=== PATIENT | female | born 1985 | race Caucasian/White ===

== ENCOUNTER 2019-09-22 11:53 | Emergency (ER) | payer MEDICAID, SELFPAY ==
[2019-09-22 11:57] VITALS: BP 111/81; PULSE 73; RESP 16; TEMP 36.4; O2SAT 98
--- NOTE | 2019-09-22 14:01 | ED.GENADULT ---
HPI - General Adult General Chief complaint: Eye Problems Stated complaint: left eye swelling Time Seen by Provider: 09/22/19 12:59 Source: patient Mode of arrival: ambulatory Limitations: no limitations History of Present Illness HPI narrative: 33-year-old female patient presents to the emergency department with complaints of left eye swelling. Patient states is been this way for the past 2 to 3 days. Denies wearing any type of eye make-up recently. Denies any trauma to the eye that she is aware of. Patient states that she has been having some watering to the eye and has been using some cool compresses. Patient states it is tender to the touch. Denies wearing any contacts. Related Data Allergies Allergy/AdvReac Type Severity Reaction Status Date / Time aspirin Allergy Mild Anaphylaxis Verified 09/22/19 11:59 Penicillins Allergy Mild Anaphylaxis Verified 09/22/19 11:59 Review of Systems Review of Systems: Narrative: CONSTITUTIONAL: Denies fever, chills, or sweats. EYES: Denies visual changes, redness, or discharge. Positive swelling and redness to the left upper eyelid ENT: Denies rhinorrhea, congestion, sore throat, or otalgia. CARDIOVASCULAR: Denies chest pain, palpitations, or edema. RESPIRATORY: Denies cough or dyspnea. GASTROINTESTINAL: Denies abdominal pain, nausea, vomiting, or diarrhea. GENITOURINARY: Denies dysuria or hematuria. SKIN: Denies rash or itching. MUSCULOSKELETAL: Denies back pain, joint pain, or myalgia. NEUROLOGIC: Denies headache, numbness, or weakness. PSYCHIATRIC: Denies anxiety or depression. PMFSH Social History Social History Gender identity (if verbalized by the patient): Female Comments At the time of my signature I agree with nursing past medical history, surgical, social, and family history. There is no relevant family history pertinent to the presenting complaint. Exam Narrative: Exam Narrative: GENERAL: Well-appearing, well-nourished, and in no acute distress. HEAD: Normocephalic, atraumatic. EYES: PERRLA and EOM intact without limitation or complaint of pain, no periorbital soft tissue swelling. Patient has slight swelling with erythema and slight warmth noted to the left upper eyelid on the lateral side. no obvious deformity. No crusting or swelling.no tearing or draining.No photophobia. There is an internal stye noted to the lateral side on lid eversion. Corneas grossly clear, no obvious FB or hyphens/hypopyon. No injection to sclera. Lids and lashes clear. ENT: Nares clear, no rhinorrhea or epistaxis. Mucous membranes moist. NECK: Supple. No lymphadenopathy CHEST: Clear to auscultation. No respiratory distress. HEART: Regular rate and rhythm. No murmur heard. Normal peripheral pulses. ABDOMEN: Soft, nontender, nondistended, normal active bowel sounds. EXTREMITIES: Normal range of motion. No edema. SKIN: Warm, dry, no rash. NEURO: No focal deficits. Alert and oriented x3. Course Vital Signs Vital signs: Vital Signs Temperature 36.4 C L 09/22/19 11:57 Pulse Rate 73 09/22/19 11:57 Respiratory Rate 16 09/22/19 11:57 Blood Pressure 111/81 09/22/19 11:57 Pulse Oximetry 98 09/22/19 11:57 Temperature 36.4 C L 09/22/19 11:57 Pulse Rate 73 09/22/19 11:57 Respiratory Rate 16 09/22/19 11:57 Blood Pressure 111/81 09/22/19 11:57 Pulse Oximetry 98 09/22/19 11:57 Vital signs reviewed. Medical Decision Making Differential Diagnosis Differential Diagnosis: Differential diagnosis: Conjunctivitis, foreign body, corneal ulcer, Keratitis, dendritic lesions, corneal abrasion, very orbital infection, orbital cellulitis, orbital pain, acute narrow angle glaucoma, detached retina, central retinal artery occlusion, complete hyphema, vitreous hemorrhage, optic neuritis, globe disruption Cussed with patient it does appear that she has a stye to the left eye. Discussed with her we will discharge her home with some a
== END 2019-09-22 14:19 | disposition home or self-care (01) ==
PROVIDERS: Emergency Provider Nurse Practitioner Family
DX: H00.024 Hordeolum internum left upper eyelid (principal)
CPT/HCPCS: 99283

== ENCOUNTER 2020-04-07 16:59 | Emergency (ER) | payer OTHER, SELFPAY ==
--- NOTE | ~2020-04-07 | XR_ITS ---
EXAMINATION: XR chest 1V portable INDICATION: Shortness of breath, COVID 19 exposure and associated symptoms TECHNIQUE: Portable AP chest at 1759 hours COMPARISON: None available FINDINGS: The lungs are free of acute opacities. There is no pleural effusion or pneumothorax. The ca rdiomediastinal silhouette is normal. The visualized bones and soft tissues are unremarkable. IMPRESSION: 1. No acute cardiopulmonary abnormality. Reviewed, dictated and finalized at location A. PUNCH PRESS OPERATOR
[2020-04-07 17:05] VITALS: BP 110/74; PULSE 77; RESP 18; TEMP 37.1; O2SAT 99
--- NOTE | 2020-04-07 17:21 | ED.GENADULT ---
HPI - General Adult General Chief complaint: Unspecified Stated complaint: wants covid test, loss of taste and smell Time Seen by Provider: 04/07/20 17:12 Source: patient Mode of arrival: ambulatory Limitations: no limitations History of Present Illness HPI narrative: Patient is a 34-year-old female who presents complaining body aches, weakness, and mild shortness of breath x 2 days. Patient reports awaking this morning with anosmia. Patient reports that she has had recent exposure to Covid with employee testing positive. She denies chest pain, denies significant medical hisotry. She denies taking otc medications for symptom relief. Related Data Allergies Allergy/AdvReac Type Severity Reaction Status Date / Time aspirin Allergy Mild Anaphylaxis Verified 04/07/20 17:35 Penicillins Allergy Mild Anaphylaxis Verified 04/07/20 17:35 Review of Systems Review of Systems: Narrative: CONSTITUTIONAL: Denies fever, chills, or sweats. EYES: Denies visual changes, redness, or discharge. ENT: Denies rhinorrhea, congestion, sore throat, or otalgia. CARDIOVASCULAR: Denies chest pain, palpitations, or edema. RESPIRATORY: Reports mild intermittent dyspnea. GASTROINTESTINAL: Denies abdominal pain, nausea, vomiting, or diarrhea. GENITOURINARY: Denies dysuria or hematuria. SKIN: Denies rash or itching. MUSCULOSKELETAL: Reports generalized myalgia. NEUROLOGIC: Denies headache, numbness, dizziness, or weakness. PSYCHIATRIC: Denies anxiety or depression. FOR[facility]LY [facility] Past Medical History Medical History (Updated 04/07/20 @ 18:43 by BRIAN Orellana) Patient denies significant medical history Family History Family History (Updated 04/07/20 @ 17:28 by BRIAN Orellana) Other No significant family history Social History Social History Smoking status: Current every day smoker Tobacco type: cigarettes Alcohol intake: current Alcohol use details: Occasional Substance use: never Living arrangements: with family Gender identity (if verbalized by the patient): Female Sexual Orientation (if Verbalized by the Patient): Straight or Heterosexual Comments At the time of signature, I have reviewed and agree with nursing past medical, surgical, social, and family history unless otherwise noted. Please see nursing chart for further information. There is no relevant family history pertinent to the presenting complaint. Exam Narrative: Exam Narrative: GENERAL: Well-appearing, well-nourished, and in no acute distress. HEAD: Normocephalic, atraumatic. EYES: EOMI. No redness or drainage. . ENT: Mucous membranes pink and moist. Nares clear. Throat normal. Uvula midline. NECK: AROM. Supple. No lymphadenopathy. CHEST: No respiratory distress. HEART: Regular rate and rhythm. MUSCULOSKELETAL: No bony tenderness. EXTREMITIES: Normal range of motion. SKIN: Warm, dry, no rash. NEURO: No focal deficits. Alert and oriented x3. Gait steady. PSYCH: Normal affect. No signs of depression or anxiety. Course Vital Signs Vital signs: Vital Signs Temperature 37.1 C 04/07/20 17:05 Pulse Rate 77 04/07/20 17:05 Respiratory Rate 18 04/07/20 17:05 Blood Pressure 110/74 04/07/20 17:05 Pulse Oximetry 99 04/07/20 17:05 Temperature 37.1 C 04/07/20 17:05 Pulse Rate 77 04/07/20 17:05 Respiratory Rate 18 04/07/20 17:05 Blood Pressure 110/74 04/07/20 17:05 Pulse Oximetry 99 04/07/20 17:05 Medical Decision Making MDM Narrative Medical decision making narrative: Patient's chest x-ray showed no pneumonia. Patient's vital signs are stable at this time. Patient tested for Covid, results will be available in 24 to 48 hours. Patient is aware of quarantine. Patient is stable for discharge home with outpatient follow-up as needed. Patient is aware that if she develops chest pain or shortness of breath, that she is to return to the emergency department for
[2020-04-07 19:01] VITALS: BP 103/68; PULSE 75; RESP 18; TEMP 36.8; O2SAT 100
[2020-04-08 17:28] LABS: SARS-CoV-2 RNA PCR Negative
== END 2020-04-07 19:02 | disposition home or self-care (01) ==
PROVIDERS: Emergency Provider Nurse Practitioner; Family Provider Obstetrics & Gynecology
DX: B34.9 Viral infection, unspecified (principal); Z20.822 Contact with and (suspected) exposure to COVID-19; F17.210 Nicotine dependence, cigarettes, uncomplicated
CPT/HCPCS: 71045; 99283; C9803; U0003; U0005

== ENCOUNTER 2020-10-16 15:32 | Emergency (ER) | payer OTHER, SELFPAY ==
[2020-10-16 15:44] VITALS: BP 118/69; PULSE 76; RESP 14; TEMP 36.6; O2SAT 99
--- NOTE | 2020-10-16 16:26 | ED.FEMALEGU ---
HPI - Female Genitourinary General Chief complaint: EDUCATION ASSOCIATE Stated complaint: , leaking fluid Time Seen by Provider: 10/16/20 15:39 History of Present Illness HPI Narrative: Patient is a 35-year-old female who is a G4, P2 that presents ER with concerns for amniotic fluid leak. She was seen at [place] emergency room but they did not have the ability to test for amniotic fluid. She had a normal ultrasound normal lab work prior to being transferred here. Dr. Bhatt patient's OB is unable to be contacted due to being out of town. Patient reports yesterday she was lifting something out of a jeep and had it resting against her abdomen and caused to have some pain. She has had 5 episodes of clear fluid in her underwear. She does not think that she is urinating on herself. Denies vaginal bleeding. Related Data Allergies Allergy/AdvReac Type Severity Reaction Status Date / Time aspirin Allergy Mild Anaphylaxis Verified 04/07/20 17:35 Penicillins Allergy Mild Anaphylaxis Verified 04/07/20 17:35 Review of Systems Review of Systems: All systems reviewed & are unremarkable except as noted in HPI and below Gastrointestinal: Gastrointestinal: Reports abdominal pain, Denies nausea and Denies vomiting Genitourinary: Genitourinary: Denies abnormal vaginal bleeding, Denies nocturia and Denies dysuria Comments: Leakage of fluid from vagina PMFSH Past Medical History Medical History (Updated 10/16/20 @ 16:55 by Abdon Aguirre MD) Patient denies significant medical history Family History Family History (Updated 04/07/20 @ 17:28 by BRIAN Orellana) Other No significant family history Social History Social History Smoking status: Current every day smoker Tobacco type: cigarettes Alcohol intake: current Alcohol use details: Occasional Substance use: never Gender identity (if verbalized by the patient): Female Exam Narrative: GENERAL: Well-appearing, well-nourished, and in no acute distress. HEAD: Normocephalic, atraumatic. CHEST: Clear to auscultation. No respiratory distress. HEART: Regular rate and rhythm. Normal peripheral pulses. ABDOMEN: Soft, nontender, nondistended. EXTREMITIES: Normal range of motion. No edema. SKIN: Warm, dry, no rash. NEURO: Alert and oriented x3. PSYCH: Normal mood and affect. Course Course Emergency Course: Outside labs reviewed. CBC with white blood cell count of 10.2, H&H of 12.9/37.5, and platelets of 216k. BMP normal. Creatinine 0.49. Glucose 108. Unremarkable LFTs. Urinalysis with turbid appearing urine with 9-20 white blood cells and occasional bacteria. Ultrasound results show a single live intrauterine gestation in vertex presentation. Placenta is fundal and posterior. No evidence of hematoma or other posttraumatic abnormality. The amniotic fluid index is within normal range, 14.4. cardiac activity is documented with a rate of 145 bpm. The estimated uterine gestational age by this ultrasound is 18 weeks 4 days. OB has been down to the patient's room. There is no evidence of amniotic fluid leak. I discussed the case with on-call consulting manager Dr. Molina who is on-call for Dr. Bhatt's group. There is no additional testing that needs to occur. Patient was given 1 dose of Macrobid in no prescription. Will provide prescription for home. Vital Signs Vital signs: Vital Signs Temperature 97.8 F 10/16/20 15:44 Pulse Rate 76 10/16/20 15:44 Respiratory Rate 14 10/16/20 15:44 Blood Pressure 118/69 10/16/20 15:44 Pulse Oximetry 99 10/16/20 15:44 Temperature 97.8 F 10/16/20 15:44 Pulse Rate 76 10/16/20 15:44 Respiratory Rate 14 10/16/20 15:44 Blood Pressure 118/69 10/16/20 15:44 Pulse Oximetry 99 10/16/20 15:44 Discharge Plan Discharge Clinical Impression: UTI (urinary tract infection) Patient Disposition: Home, Self-Care Condition: Stable Instruc
--- NOTE | 2020-10-16 16:27 | PC.NURSE ---
ROM plus was collected and results were Negative. Results called to Dr Whitney.
[2020-10-16 17:03] VITALS: BP 112/88; PULSE 94; RESP 17; O2SAT 99
== END 2020-10-16 17:04 | disposition home or self-care (01) ==
PROVIDERS: Emergency Provider Emergency Medicine; PCP Student in an Organized Health Care Education/Training Program
DX: O23.42 Unspecified infection of urinary tract in pregnancy, second trimester (principal); O99.332 Smoking (tobacco) complicating pregnancy, second trimester; F17.210 Nicotine dependence, cigarettes, uncomplicated; Z3A.18 18 weeks gestation of pregnancy
CPT/HCPCS: 99283

== ENCOUNTER 2021-01-27 11:37 | Observation (INO) | payer OTHER, SELFPAY ==
[2021-01-27 11:57] VITALS: BP 113/64; PULSE 92
[2021-01-27 12:30] VITALS: BMI 27.1
[2021-01-27 12:51] VITALS: TEMP 36.8
[2021-01-27 12:52] LABS: Add Urine Microscopic? YES; Appearance Urine Cloudy (Clear); Bacteria Urine Trace /hpf; Bilirubin Urine Negative (Negative); Blood Urine Negative (Negative); Color Urine Yellow (Yellow); Glucose Urine UA Negative (Negative); Ketones Urine Trace mg/dL (Negative); Leukocyte Esterase Ur Negative LEU/UL (Negative); Mucus Urine Rare /lpf; Nitrate Urine Negative (Negative); Protein Urine Negative (Negative); RBC Urine 0-2 /hpf (0-2); Specific Grav Ur 1.016 (1.001-1.035); Squamous Epithelial Cell Urine Few /hpf (Few); Urobilinogen Urine Negative mg/dL (<2.0); WBC Urine 0-3 /hpf
--- NOTE | 2021-01-27 13:44 | PC.NURSE ---
1245- called after reviewing strip from office, gave orders to discharge pt home. Encourage pt to take a warm bath and tylenol for back pain.
--- NOTE | 2021-01-28 13:10 | PM.OBTRLD ---
OB - Triage/Final Diagnosis Visit Information Date of evaluation: 01/27/21 Reason for evaluation: threatened labor Comments/Additional reasons for admission: I have assessed the risk for this patient, Catherine Gorman, and determined that she would benefit from observation care. Evaluation Laboratory results: Laboratory Tests 01/27/21 12:35 Urine Color Yellow Urine Appearance Cloudy H Urine pH 7.0 Ur Specific [place] 1.016 Urine Protein Negative Urine Glucose (UA) Negative Urine Ketones Trace Ur Blood (Man) Negative Urine Nitrate Negative Urine Bilirubin Negative Urine Urobilinogen Negative Leukocyte Esterase Rfl Negative Urine RBC 0-2 Urine WBC 0-3 Ur Squamous Epith Cells Few Urine Bacteria Trace Urine Mucus Rare
== END 2021-01-27 12:56 | disposition home or self-care (01) ==
PROVIDERS: Admitting Provider Student in an Organized Health Care Education/Training Program; Visit Provider Student in an Organized Health Care Education/Training Program
DX: O47.03 False labor before 37 completed weeks of gestation, third trimester (principal); Z3A.33 33 weeks gestation of pregnancy
CPT/HCPCS: 81001; G0378; G0379

== ENCOUNTER 2021-02-03 07:21 | Outpatient (CLI) | payer OTHER, SELFPAY ==
--- NOTE | ~2021-02-03 | US_ITS ---
EXAMINATION: US OB follow up EXAM DATE: 02/03/2021 07:58 INDICATION: Growth scan; , growth. 3rd trimester. TECHNIQUE: Pelvic obstetrical transabdominal sonogram was performed by a technologist. There are mu ltiple grayscale and Doppler images available for interpretation. There are no earlier studies of th is gestation for comparison. FINDINGS: There is a single fetus identified in vertex presentation with a heart rate of 119 beats pe r minute. The placenta is located in the posterior position. There is no sonographic evidence of ret roplacental hemorrhage identified. The amniotic fluid index is 11.9 centimeters, which is normal. BIOMETRIC DATA: Biparietal diameter (BPD): 9.0 cm ----------------> 36 weeks 2 days. Head circumference (HC): 30.6 cm ----------------> 34 weeks 1 day. Abdominal circumference (AC): 31.0 cm ----------> 35 weeks 0 days. Femur length (FL): 6.8 cm --------------------------> 35 weeks 1 day. These measurements are concordant. HC/AC ratio is 0.99 (The 5th -- 95th percentile range is 0.93-1.11. Estimated weight is 2581 g +/- 387 g. This is the 71st percentile when the currently reported clinical gestation age 34 weeks 1 day, clinical estimated date of delivery (CHELO-OPE) 03/16/2021 is us ed. estimated gestational age based on measurements from this exam is 35 weeks 1 day, with an e stimated date of delivery (CHELO-AUA) 03/09. IMPRESSION: 1. Single fetus in vertex presentation with heart rate 119 beats per minute. 2. Estimated weight of 2581 grams, 71st percentile using the currently reported clinical gesta tion age of 34 weeks 1 day, CHELO(OPE) 03/16. 3. Normal YUNIEL 11.9 cm. Reviewed, dictated and finalized at location B. CH SCIENTIST IMPRESSION: 1. Single fetus in vertex presentation with heart rate 119 beats per minute. 2. Estimated weight of 2581 grams, 71st percentile using the currently r eported clinical gestation age of 34 weeks 1 day, CHELO(OPE) 03/16. 3. Normal YUNIEL 11.9 cm.
== END 2021-02-03 07:22 | disposition home or self-care (01) ==
LOC: ANHIMG 07:25
PROVIDERS: PCP Student in an Organized Health Care Education/Training Program; Visit Provider Student in an Organized Health Care Education/Training Program
DX: Z34.93 Encounter for supervision of normal pregnancy, unspecified, third trimester (principal); Z3A.34 34 weeks gestation of pregnancy
CPT/HCPCS: 76816

== ENCOUNTER 2021-02-19 15:46 | Observation (INO) | payer OTHER, SELFPAY ==
[2021-02-19] VITALS (11 sets, daily range): BP systolic 91–108; BP diastolic 50–73; PULSE 102–113; TEMP 37.6–38.1; BMI 27.1
--- NOTE | 2021-02-19 15:46 | OBADM ---
This patient, Catherine Gorman, admitted to the OB room Labor/Delivery/Recovery 106 for observation. Patient/family oriented to hospital policies and general routines including ID bracelet, bed and alarms, visiting hours, pain management, procedures, bathroom and other care routines, personal items, smoking policy, room service/diet, and visiting hours. Patient/Family are encouraged to report perceived risks to care and to ask questions if they do not understand what they are told or what they should do.
--- NOTE | 2021-02-19 18:09 | WPDANESEPP ---
Anes - Eval Pre Procedure Procedure: Labor epidural Date/Time: 02/19/21 18:09 Surgeon: Desean Preop Diagnosis: Abd pain with contractions Pre Op Diagnosis: Abdominal pain/back pain Patient Data Age: 35 Gender: F Height: Weight: Last Vital Signs Temp 99.7 F H 02/19/21 16:04 Pulse 109 H 02/19/21 18:00 BP 101/50 L 02/19/21 18:00 Allergies Allergy/AdvReac Type Severity Reaction Status Date / Time aspirin Allergy Mild Anaphylaxis Verified 04/07/20 17:35 Penicillins Allergy Mild Anaphylaxis Verified 04/07/20 17:35 : gestational age HCG: positive Patient hx anesthesia problems: none Family hx anesthesia problems: none Results Review: All pre-operative results and documents have been reviewed as part of the pre-operative evaluation. PMF Past Medical History Medical History Patient denies significant medical history and not yet delivered Smoker Family History Family History Other No significant family history Social History Social History Smoking status: Current every day smoker Tobacco type: cigarettes Alcohol intake: current Alcohol use details: Occasional Substance use: never Gender identity (if verbalized by the patient): Female Sexual Orientation (if Verbalized by the Patient): Straight or Heterosexual Exam Day of Procedure 02/19/21 18:09
[2021-02-19] MEDS: ACETAMINOPHEN 500 MG TABLET 1000 MG PO (18:25)
[2021-02-19 18:49] LABS: EDCOVIDSCREEN Positive (Negative)
--- NOTE | 2021-02-19 19:14 | PC.NURSE ---
[phone]-paged Dr. Remington Monge [phone]- Dr. Remington Monge returned page. lab results reviewed. pt to quarantine for 10 days and await call from health department. increase fluids, tylenol for fever, rest. work note given to pt. per pt she is not vaccinated.
--- NOTE | 2021-02-20 06:40 | PM.OBTRLD ---
OB - Triage/Final Diagnosis Visit Information Date of evaluation: 02/19/21 Reason for evaluation: threatened labor and other (covid) Comments/Additional reasons for admission: I have assessed the risk for this patient, Catherine Gorman, and determined that she would benefit from observation care. Evaluation Laboratory results: Laboratory Tests 02/19/21 18:29 SARS-CoV-2 IgG/IgM Ag?Rapid Positive Vital signs: Vital Signs - 24 hr 02/19/21 16:04 02/19/21 16:44 02/19/21 16:45 Temperature 99.7 F H Pulse Rate 105 H 105 H Blood Pressure 106/67 104/71 02/19/21 17:00 02/19/21 17:15 02/19/21 17:30 Temperature Pulse Rate 102 H 103 H 113 H Blood Pressure 107/73 102/60 91/52 L 02/19/21 17:45 02/19/21 18:00 02/19/21 18:08 Temperature 100.6 F H Pulse Rate 110 H 109 H Blood Pressure 96/51 L 101/50 L 02/19/21 18:15 02/19/21 18:25 Temperature 100.6 F H Pulse Rate 108 H Blood Pressure 108/69
== END 2021-02-19 19:13 | disposition home or self-care (01) ==
PROVIDERS: Admitting Provider Obstetrics & Gynecology; Visit Provider Obstetrics & Gynecology
DX: O98.52 Other viral diseases complicating childbirth (principal); U07.1 COVID-19; O47.03 False labor before 37 completed weeks of gestation, third trimester; Z3A.36 36 weeks gestation of pregnancy; Z37.0 Single live birth
CPT/HCPCS: 36415; 87426; A9270; C9803; G0378; G0379

== ENCOUNTER 2021-03-09 00:01 | Inpatient (IN) | payer OTHER, SELFPAY ==
[2021-03-09] VITALS (53 sets, daily range): BP systolic 79–176; BP diastolic 34–146; PULSE 54–131; RESP 16–22; TEMP 36.4–37.2; O2SAT 99; BMI 26.7
--- NOTE | 2021-03-09 00:01 | LDADM ---
This patient, Catherine Gorman, was admitted to Labor/Delivery/Recovery 104 on 03/09/21 at 00:01. Plans for labor, pain management and were discussed with patient. Patient/family oriented to hospital policies and general routines including ID bracelet, bed and alarms, visiting hours, pain management, procedures, bathroom and other care routines, personal items, smoking policy, room service/diet and guest tray routines, security routines, and visiting hours. Patient/Family are encouraged to report perceived risks to care and to ask questions if they do not understand what they are told or what they should do. See OBIX for further documentation.
[2021-03-09] MEDS: LACTATED RINGERS 1,000 ML 125 ML IV CONT (01:07)
[2021-03-09] MEDS: OXYTOCIN 30 UNITS/NS 500 ML 30 UNITS/500 ML BAG IV CONT (01:07)
[2021-03-09 01:14] LABS: Basophils Percent Auto 0.4 % (0.2-1.2); Eosinophils Absolute Auto 0.1 K/mm3 (0-0.3); Eosinophils Percent Auto 1.2 % (0-4.4); Hemoglobin 10.4 g/dL (12.0-15.0); Immature Granulocyte Absolute 0.17 K/mm3 (0.00-0.031); Immature Granulocyte Percent A 1.9 % (0-0.5); Lymphocytes Absolute Auto 2.37 K/mm3 (0.9-3.2); Lymphocytes Percent Auto 25.8 % (18.3-44.2); Mean Corpuscular HGB Conc 33.5 g/dl (32-36); Mean Corpuscular Hemoglobin 31.8 pg (26-34); Mean Corpuscular Volume 94.8 fl (80-100); Mean Platelet Volume 11.5 fl (7.4-10.4); Monocytes Absolute Auto 0.9 K/mm3 (0.1-0.6); Monocytes Percent Auto 9.5 % (2.6-8.5); Neutrophils Absolute Auto 5.6 K/mm3 (1.3-6.7); Neutrophils Percent Auto 61.2 % (45.5-73.1); Platelet Count Result 196 k/mm3 (150-375); Red Blood Count 3.27 M/mm3 (4.2-5.4); Red Cell Distribution Width 13.6 % (11.5-14.5); White Blood Count 9.2 K/mm3 (4.5-10.0)
[2021-03-09 01:30] LABS: Amphetamine Screen Urine Negative (Negative); Barbiturate Screen Urine Negative (Negative); Benzodiazepines Screen Urine Negative (Negative); Cannabinoid Screen Urine Positive (Negative); Cocaine Screen Urine Negative (Negative); Methadone Screen Urine Negative (Negative); Opiate Screen Urine Negative (Negative); Phencyclidine Screen Urine Negative (Negative)
--- NOTE | 2021-03-09 06:01 | WPDANESEPP ---
Anes - Eval Pre Procedure Procedure: labor pain management Date/Time: 03/09/21 06:01 Surgeon: Miller Preop Diagnosis: pain during labor Pre Op Diagnosis: IOL Patient Data Age: 35 Gender: F Height: 1.66 m Weight: 74 kg Last Vital Signs Pulse 67 03/09/21 06:00 BP 110/76 03/09/21 06:00 Allergies Allergy/AdvReac Type Severity Reaction Status Date / Time aspirin Allergy Severe Anaphylaxis Verified 02/24/21 15:33 Penicillins Allergy Severe Anaphylaxis Verified 02/24/21 15:33 Home Medications Medication Instructions Recorded Confirmed Type PNV no.[id number] 2 tablet PO 02/24/21 History [ Gummies] ergocalciferol (vitamin D2) 1,250 mcg PO WEEKLY 02/24/21 03/09/21 History [Vitamin D2] ondansetron HCl [Zofran] 8 mg PO DAILY 02/24/21 03/09/21 History Laboratory Tests 03/09/21 03/09/21 03/09/21 01:05 01:05 01:05 WBC 9.2 K/mm3 K/mm3 (4.5-10.0) RBC 3.27 M/mm3 L M/mm3 (4.2-5.4) Hgb 10.4 g/dL L g/dL (12.0-15.0) Hct 31.0 % L % (37.0-47.0) MCV 94.8 fl fl (80-100) MCH 31.8 pg pg (26-34) MCHC 33.5 g/dl g/dl (32-36) RDW 13.6 % % (11.5-14.5) Plt Count 196 k/mm3 k/mm3 (150-375) MPV 11.5 fl H fl (7.4-10.4) Immature Gran % (Auto) 1.9 % H % (0-0.5) Neut % (Auto) 61.2 % % (45.5-73.1) Lymph % (Auto) 25.8 % % (18.3-44.2) [place] % (Auto) 9.5 % H % (2.6-8.5) Eos % (Auto) 1.2 % % (0-4.4) Baso % (Auto) 0.4 % % (0.2-1.2) Lymph # (Auto) 2.37 K/mm3 K/mm3 (0.9-3.2) [place] # (Auto) 0.9 K/mm3 H K/mm3 (0.1-0.6) Eos # (Auto) 0.1 K/mm3 K/mm3 (0-0.3) Baso # (Auto) 0.0 K/mm3 K/mm3 (0.0-0.1) Abs Immat Gran (auto) 0.17 K/mm3 H K/mm3 (0.00-0.031) Absolute Neuts (auto) 5.6 K/mm3 K/mm3 (1.3-6.7) Absolute Nucleated RBC 0.0 K/mm3 K/mm3 (0.0-0.012) Nucleated RBC % 0.0 % % (0.0-0.2) Urine Opiates Screen Urine Methadone Screen Ur Barbiturates Screen Ur Phencyclidine Scrn Ur Amphetamine Screen U Benzodiazepines Scrn Urine Cocaine Screen U Cannabinoids Screen RPR Pending Blood Type O Negative Antibody Screen Negative 03/09/21 01:05 WBC RBC Hgb Hct MCV MCH MCHC RDW Plt Count MPV Immature Gran % (Auto) Neut % (Auto) Lymph % (Auto) [place] % (Auto) Eos % (Auto) Baso % (Auto) Lymph # (Auto) [place] # (Auto) Eos # (Auto) Baso # (Auto) Abs Immat Gran (auto) Absolute Neuts (auto) Absolute Nucleated RBC Nucleated RBC % Urine Opiates Screen Negative (Negative) Urine Methadone Screen Negative (Negative) Ur Barbiturates Screen Negative (Negative) Ur Phencyclidine Scrn Negative (Negative) Ur Amphetamine Screen Negative (Negative) U Benzodiazepines Scrn Negative (Negative) Urine Cocaine Screen Negative (Negative) U Cannabinoids Screen Positive A (Negative) RPR Blood Type Antibody Screen : gestational age (edc 03/16/21) Patient hx anesthesia problems: none Family hx anesthesia problems: none Results Review: All pre-operative results and documents have been reviewed as part of the pre-operative evaluation. FORMERLY [facility] Past Medical History Medical History Patient denies significant medical history and not yet delivered Smoker Family History Family History Father Diabetes mellitus Congestive heart failure Seizure Sibling Cervical cancer Grandparent Congestive heart failure Sibling Seizure Other Sibli
[2021-03-09] MEDS: ONDANSETRON INJ 4 MG/2 ML VIAL IV PUSH (08:14)
--- NOTE | 2021-03-09 09:20 | WPDHPUPDATE1 ---
History and Physical Update Update Date/Time: 03/09/21 09:20 35 yo at 39w0d who presents for elective IOL. Her has been complicated by THC use, GERD, nausea, and pelvic girdle pain. She endorses good movement. She denies any vaginal bleeding or LOF. History and Physical has been reviewed, including an updated exam of the patient. There are NO changes in the patient's condition. Risks, benefits, and alternatives have been discussed and questions answered. Patient agrees to proceed with procedure. A/P: admit to L&D routine admission orders Pitocin IOL will AROM for augmentation Rh+ GBS neg FTH cat 1 continuous EFM
[2021-03-09 10:58] LABS: Rapid Plasma Reagin Non-Reactive (NonReactive)
[2021-03-09] MEDS: LIDOCAINE HCL 1% PF 30 ML VIAL (11:25)
--- NOTE | 2021-03-09 11:34 | PM.OBPRVD ---
OB - Delivery Note Procedure Delivery date: 03/09/21 Procedure: Patient pushed for a spontaneous vaginal delivery. The fetus was delivered atraumatically and placed on the maternal abdomen. The cord was clamped and cut after 1 minute of life. The cord was double clamped and cut and a segment of cord was collected for cord gases. Cord blood was collected for blood type and Coomb's testing. The placenta delivered spontaneously and was noted to be intact. The perineum was inspected and there was a 1st degree perineal laceration. The laceration was anesthetized with local anesthetic. The laceration was repaired with 3-0 vicryl in the usual fashion. The uterus was firm and good hemostasis was noted. The patient and fetus were stable in the delivery room. Intrapartal events: None Induction method: per pitocin protocol Delivery augmentation: rupture of membranes Delivery monitor: external FHT Route of delivery: Episiotomy description: None Laceration Description: Perineal - 1st Degree and Labial (Right) Delivery repair: vicryl Specimen: No Quantitative Blood Loss (ml): 150 Anesthesia type: Local Disposition: floor () Complications: No immediate complications Baby Date of : 03/09/21 Time of : 11:19 Weeks of gestation at delivery: 39 gender: Male Weight (pounds): 7 Weight (ounces): 4 presentation: vertex position: Right Occiput Anterior Placenta delivery description: Spontaneous cord vessel description: 3 Vessels and Nuchal Cord score one minute: 8 score five minutes: 9
[2021-03-09] MEDS: OXYTOCIN 30 UNITS/NS 500 ML 30 UNITS/500 ML BAG 125 UNITS IV CONT (12:07)
[2021-03-09] MEDS: IBUPROFEN 600 MG TABLET PO ×2 (13:31→23:30)
[2021-03-09] MEDS: WITCH HAZEL 40 PADS 1 PAD TOPICAL (13:32)
[2021-03-09] MEDS: BENZOCAINE 20% AER SPR (*SP) 56 GM CAN 1 SPRAY TOPICAL (13:32)
--- NOTE | 2021-03-09 14:30 | PC.NURSE ---
Patient transferred to post room #285 via wheel chair. Support person present. Oriented to unit, room, information board, rooming in, admission packet and security measures. Patient verbalizes understanding.
[2021-03-10] MEDS: IBUPROFEN 600 MG TABLET PO ×2 (05:11→13:07)
[2021-03-10 05:19] LABS: Hematocrit 31.6 % (37.0-47.0); Hemoglobin 10.5 g/dL (12.0-15.0)
--- NOTE | 2021-03-10 07:45 | PC.NURSE ---
PT introductions made and plan of care discussed per post , pain management, bottle feeding, daily care activities and pending discharge to home. PT received instructions and care this shift via one to one discussion, mom baby care guide, demonstrations. PT sole recipient of such instructions and no barriers to learning identified at this time. Pt verbalized understanding of such care.
--- NOTE | 2021-03-10 07:51 | PM.OBDSVD ---
DS: Admitting Diagnosis Discharge Date 03/10/21 Admitting Diagnosis intrauterine at term OB - DS: Summary OB Procedures : None OB Procedures Intrapartum: Spontaneous Vag Delivery OB Procedures: : None Status at Discharge Functional status at discharge: independent ambulation Overall status at discharge: patient is back to baseline Time Spent with Patient Time attestation: Total time spent providing and/or coordinating discharge services: Time spent: Less than 30 minutes Exam Const: General: comfortable and no acute distress Resp: Effort & Inspection: normal respiratory effort Auscultation: clear to auscultation bilaterally Cardio: Rate: regular rate GI: GI Palp: Yes Soft to palpation Auscultation: normal bowel sounds Other: Fundus firm below umbilicus Psych: Appearance: grossly normal Mental Status: mental status grossly normal Affect: normal affect DS: Data Data Completed and Pending Labs on day of discharge: Labs from last 24 hours 03/10/21 03/10/21 03/09/21 05:07 04:58 01:05 Hgb 10.5 L Hct 31.6 L RPR Non-reactive Blood Type O Positive Antibody Screen TNP Screen Pending Baby's Blood Type Pending Baby's MYLES Pending Doses of RhIg Required Pending Discharge Plan Discharge Discharging Clinician: Jose Bhatt Patient Disposition: Home, Self-Care Activity: as tolerated and pelvic rest Diet: regular Discharge Instructions: Education: Mom and Baby Guide Given to: Mother Follow-Up: Call your delivering provider's office for an appointment to be seen in: 4 Weeks Mom and baby should come to the [facility] for the follow-up appointment. Appointment Date/Time: March 11, 2021 at 11:00 am What to expect at your follow-up visit: Blood Pressure Check Call [phone] if you are unable to keep your appointment time. BREAST CARE: * Wear a snug supportive bra. * For engorgement discomfort: Bottle Feeding: * May apply ice packs PERINEAL CARE: * Until bleeding stops, use your anuradha bottle after urinating * Change your pad frequently throughout the day * You may take sitz baths several times a day (fill your bathtub with warm water and soak for 20 minutes.) Do NOT bathe in the water * No tub baths until seen by your physician - You may shower ACTIVITY: * Rest as much as possible. * Do not exercise or lift anything heavier than your baby (such as laundry or other children.) * Avoid stairs or driving as much as possible. * Do not put anything into the vagina. No douching, tampons, or sexual activity until seen by physician. NOTIFY PHYSICIAN IF YOU HAVE ANY QUESTIONS OR IF ANY OF THE FOLLOWING SYMPTOMS OCCUR: * If your perineum becomes red, swollen, or more painful than what you have experienced in the hospital. * If your vaginal bleeding becomes foul smelling. * If your vaginal bleeding becomes more heavy than a period or if your bleeding changes from pink to bright red. However, you may pass an occasional walnut-sized clot once or twice for the first week . * If you experience a sharp, shooting pain in you calves. * If you discover a hard, reddened area on your breast or if you experience flu-like symptoms. * If you have a fever of 100.4 or greater DIET: * Eat regular, well-balanced meals. * Drink plenty of fluids daily. If , drink to thirst. Patient Instructions: Antibiotic Form Stand Alone Forms: General Discharge Information Follow-up/Referrals: Jose Bhatt MD [Physician] - 4 Weeks Discharge Medications: New polysaccharide iron complex 150 mg iron Capsule 150 mg PO BIDWM Qty: 60 RF: 0 acetaminophen [Mapap (acetaminophen)] 325 mg Tablet 650 mg PO Q6H PRN (Reason: Mild Pain (1-3) Or Headache) Qty: 30 RF: 0 ibuprofen 600 mg Tablet 600 mg PO Q6H PRN (Reason: Cramping) Qty: 30 RF: 0 Continued ondansetron HC
[2021-03-10 08:10] VITALS: BP 125/82; PULSE 92; RESP 18; TEMP 36.2; O2SAT 100
[2021-03-10 10:15] VITALS: PULSE 92; RESP 18; O2SAT 100
[2021-03-10] MEDS: ACETAMINOPHEN 325 MG TABLET 650 MG PO (10:17)
[2021-03-10] MEDS: MULTIVIT/MIN/PREN/FOL AC/IRON TABLET 1 TAB PO (10:18)
[2021-03-10] MEDS: DOCUSATE SODIUM 100 MG CAPSULE PO (10:18)
--- NOTE | 2021-03-10 11:35 | PCCCNOTE ---
Addendum entered by TYLER Briscoe 03/10/21 15:05: Received email confirmation that DCFS will take a report # [id number] and follow up with family regarding marijuana use. Original Note: Care Coordination Consult: Met with pt. today who reports she lives at home with YVES Cooley. This is her third child. They have all necessary supplies at home including a crib, car seat, bottles, clothing, and formula. Is interested in [facility] services with resources provided. Pt. confirms recreational marijuana use. Reports she will discontinue using marijuana and plans to bottle feed her child. Denies any other substance use. Denies a reliance on marijuana and does not want any substance abuse resources. Reports she plans to establish with a PMD in [place], spoke about [facility]. She denies any further case management needs. Completed online DCFS report regarding marijuana usage during , report number [id number]. Discharging this morning.
--- NOTE | 2021-03-10 12:45 | PC.NURSE ---
PT received discharge instructions per protocol and verbalized understanding
[2021-03-10] MEDS: RHO(D) IMMUNE GLOBULIN 300 MCG/2 ML SYRINGE IM (13:08)
--- NOTE | 2021-03-10 13:15 | PC.NURSE ---
PT discharged to home ambulatory accompanied by fob and infant and walked to waiting car. Follow up appts confirmed
[2021-03-11 11:25] VITALS: BP 102/67; PULSE 70; RESP 20; TEMP 36.8; O2SAT 100
== END 2021-03-10 13:15 | disposition home or self-care (01) | DRG 560 ==
LOC: ANHLDR 00:22 → ANHOB2 14:28
PROVIDERS: Admitting Provider Student in an Organized Health Care Education/Training Program; Visit Provider Student in an Organized Health Care Education/Training Program
DX: O99.324 Drug use complicating childbirth (principal); Z37.0 Single live birth; Z3A.39 39 weeks gestation of pregnancy; F12.90 Cannabis use, unspecified, uncomplicated; K21.9 Gastro-esophageal reflux disease without esophagitis; O99.62 Diseases of the digestive system complicating childbirth; O99.334 Smoking (tobacco) complicating childbirth; F17.210 Nicotine dependence, cigarettes, uncomplicated; O70.0 First degree perineal laceration during delivery
CPT/HCPCS: 36415; 80307; 85014; 85018; 85025; 85460; 85461; 86592; 86850; 86900; 86901; 90384; A9270; J2405; J2590; J2790; J7120

== ENCOUNTER 2021-04-30 11:24 | Outpatient (CLI) | payer OTHER, SELFPAY ==
--- NOTE | 2021-04-30 11:29 | ECG_ITS ---
Measurements Intervals Kelley Rate: 65 P: 55 AK: 161 QRS: 71 QRSD: 93 T: 29 QT: 394 QTc: 412 Interpretive Statements SINUS RHYTHM BASELINE ARTIFACT- I, II, III, AVR, AVL, AVF NORMAL ECG Electronically Signed On 04-30-2021 12:20:47 MEDIA/INSTRUCTIONAL DESIGNER by Gabriele Walters D.O.
== END 2021-04-30 11:25 | disposition home or self-care (01) ==
LOC: ANHSURGERY 11:27
PROVIDERS: Visit Provider Student in an Organized Health Care Education/Training Program
DX: Z01.818 Encounter for other preprocedural examination (principal)
CPT/HCPCS: 93005

== ENCOUNTER 2021-05-06 01:08 | Day surgery (SDC) | payer OTHER, SELFPAY ==
[2021-04-28 11:45] VITALS: BMI 24.9
--- NOTE | 2021-04-28 11:58 | PC.NURSE ---
Report to the Outpatient Waiting Room, entrance under the green pavilion located off [facility], at time 12:30 on date 05/06/21. OR Time: 2:30. - You will be asked a series of questions to screen for COVID 19 for your protection. - A mask is required within the hospital. - No visitors are allowed at this time. Preoperative COVID Testing Requirements: + 02/19/21 No COVID Test needed if: (proof is required; if not received patient will have Rapid Test prior to entry) - Patient has received COVID Vaccine at least 14 days prior to procedure date or - Patient has positive COVID test result within last 90 days of surgery date. COVID Test needed if above criteria is not met Patients may have clear liquids (water, carbonated beverages, clear teas, apple juice) until 3 hours prior to surgery (11:30) with a maximum of 20 ounces. - No food from midnight until time of surgery Take the following medications with a SIP of water the morning of surgery: NONE Medications to discontinue per physician: N/A Date to take last dose: N/A Please no make-up, nail djiboutian, hairspray, perfume, deodorant, or body powder the day of surgery. No jewelry (including any body piercings) or valuables the day of surgery, leave them at home. Please take a shower or bath the night before, or the morning of, surgery with an antibacterial soap. Wear comfortable, loose fitting clothing. - Jewelry must be removed prior to entering the operating room. Rings and piercings that are not removed may be cut off. - The hospital will not accept responsibility for valuables. - Please leave all valuables, including medications, at home the day of surgery. If you are going home after surgery, a licensed construction driver must drive you home. - NO public transportation without another adult. - We recommend that an adult stay with you for 24 hours following discharge. - We also recommend that you do not drive, make important decision, drink alcoholic beverages, or take any drugs that were not prescribed by your health care provider for at least 24 hours after your discharge time. Follow any additional instructions given to you from your surgeon. Telephone instructions given to MILTON GIBBS and asked if any additional questions and then verbalized understanding. Patient advised to call surgeon office or pre surgery nurse liaison [phone] if any additional questions.
[2021-05-06] VITALS (7 sets, daily range): BP systolic 98–124; BP diastolic 62–83; PULSE 54–84; RESP 14–16; TEMP 36.1–36.2; O2SAT 98–100
--- NOTE | 2021-05-06 10:07 | PM.IMHP ---
H&P: HPI History of Present Illness Date/Time: 05/06/21 10:07 Chief Complaint: encounter for permanent sterilization Narrative: 35 yo who presents for laparoscopic bilateral salpingectomy for permanent sterilization. Pt is after vaginal delivery on 03/09/21. She declines any alternative forms of contraception. Review of Systems Cardiovascular: Cardiovascular: Denies chest pain, Denies leg edema, Denies palpitations, Denies dyspnea and Denies dyspnea on exertion Respiratory: Respiratory: Denies cough, Denies dyspnea and Denies dyspnea on exertion Gastrointestinal: Gastrointestinal: Denies abdominal pain, Denies constipation, Denies diarrhea, Denies nausea and Denies vomiting Genitourinary: Genitourinary: Denies hematuria, Denies urinary frequency, Denies dysuria, Denies pelvic pain, Denies urinary incontinence and Denies vaginal discharge Neurologic: Reports system reviewed and no additional complaints, except as documented Psychiatric: Psychiatric: Reports no additional psychiatric complaints Endocrine: Endocrine: Denies palpitations PMFSH Past Medical History Medical History Patient denies significant medical history and not yet delivered Smoker Family History Family History Father Diabetes mellitus Congestive heart failure Seizure Sibling Cervical cancer Grandparent Congestive heart failure Sibling Seizure Other Sibling Social History Social History Smoking packs per day: 1 Smoking cigarettes per day: 20.0 Years smoked: 24 Smoking pack-years: 24.00 Smoking status: Current every day smoker Tobacco type: cigarettes Second hand tobacco smoke exposure: Yes Alcohol intake: current Alcohol use details: Occasional Substance use: current Substance use type: marijuana Last use: 02/24/21 Living arrangements: with family Gender identity (if verbalized by the patient): Female Sexual Orientation (if Verbalized by the Patient): Straight or Heterosexual Spiritual care concerns: No Meds Home Medications and Allergies Home Medications Medication Instructions Recorded Confirmed Type No Home Medications 04/28/21 04/28/21 History Allergies Allergy/AdvReac Type Severity Reaction Status Date / Time aspirin Allergy Severe Anaphylaxis Verified 04/28/21 11:44 Penicillins Allergy Severe Anaphylaxis Verified 04/28/21 11:44 Exam Const: General: no acute distress Eyes: EOM: EOMs intact bilaterally Neck: Neck: supple Thyroid: thyroid normal Chest: Breast/axilla inspection: normal inspection of the breasts Breast/axilla palpation: normal palpation of the breasts, normal palpation of the axillae and no axillary lymphadenopathy Resp: Effort & Inspection: normal respiratory effort Auscultation: clear to auscultation bilaterally Cardio: Rate: regular rate Rhythm: regular rhythm GI: Inspection: non-distended GI Palp: Yes Soft to palpation, No Tenderness to palpation present (GI) and No Guarding due to palpation present (GI) Auscultation: normal bowel sounds : General: No bladder normal to palpation External Female Exam: normal external appearance Speculum Exam - Vagina: normal vaginal discharge and No vaginal bleeding Speculum Exam - Cervix: nontender Bimanual exam- vagina & uterus: No bladder normal to palpation and No Cervical tenderness present OB/external & speculum: No vaginal bleeding Skin: General skin exam: normal color and no rashes or lesions noted Neuro: Cognition (Neuro): normal cognition Speech: normal speech Extrem: General: normal to inspection and no edema Psych: Mental Status: mental status grossly normal Affect: normal affect Assessment and Plan Assessment and plan (1) Encounter for sterilization: Code(s): Z30.2 - Encounter for sterilization Status: Acute
--- NOTE | 2021-05-06 10:09 | WPDHPUPDATE1 ---
History and Physical Update Update Date/Time: 05/06/21 10:09 History and Physical has been reviewed, including an updated exam of the patient. There are NO changes in the patient's condition. Risks, benefits, and alternatives have been discussed and questions answered. Patient agrees to proceed with procedure.
--- NOTE | 2021-05-06 12:55 | WPDANESEPPF ---
Anes - Initial Pre Proc Eval Procedure: Operation Date: 05/06/21 14:30 Proposed Procedures p Laparoscopic Bilateral Salpingectomy - Jose Bhatt MD Date/Time: 05/06/21 12:55 Surgeon: Jose Bhatt MD Pre Op Diagnosis: desires sterlization Patient Data Age: 35 Gender: F Height: 1.66 m Weight: 69 kg Allergies Allergy/AdvReac Type Severity Reaction Status Date / Time aspirin Allergy Severe Anaphylaxis Verified 04/28/21 11:44 Penicillins Allergy Severe Anaphylaxis Verified 04/28/21 11:44 Home Medications Medication Instructions Recorded Confirmed Type No Home Medications 04/28/21 04/28/21 History Patient hx anesthesia problems: none Family hx anesthesia problems: none Results Review: All pre-operative results and documents have been reviewed as part of the pre-operative evaluation. [facility] Past Medical History Medical History Patient denies significant medical history and not yet delivered Smoker Family History Family History Father Diabetes mellitus Congestive heart failure Seizure Sibling Cervical cancer Grandparent Congestive heart failure Sibling Seizure Other Sibling Social History Social History Smoking packs per day: 1 Smoking cigarettes per day: 20.0 Years smoked: 24 Smoking pack-years: 24.00 Smoking status: Current every day smoker Tobacco type: cigarettes Second hand tobacco smoke exposure: Yes Alcohol intake: current Alcohol use details: Occasional Substance use: current Substance use type: marijuana Last use: 02/24/21 Living arrangements: with family Gender identity (if verbalized by the patient): Female Sexual Orientation (if Verbalized by the Patient): Straight or Heterosexual Spiritual care concerns: No Anes - Eval Final PreProcedure Day of Procedure 05/06/21 12:55 Patient weight: normal Heart: regular rate and rhythm Lungs: clear to auscultation and normal air movement Airway: Mallampati scale class II Neurological: alert and oriented Last oral intake: >/= 8 hours ASA classification: II Emergent: no Anesthetic plan: proceed Anesthesia type and monitoring: general ETT Results Review: All pre-operative results and documents have been reviewed as part of the pre-operative evaluation. Informed Consent: The patient's anesthetic plan and its attendant risks and benefits were discussed with the patient/family/POA. Questions were solicited and answers provided to the satisfaction of the patient/family/POA.
[2021-05-06] MEDS: LACTATED RINGERS 1,000 ML 30 ML IV CONT ×2 (13:04→14:30)
[2021-05-06] MEDS: KETOROLAC 15 MG/ML VIAL (*BKC) IV PUSH (13:06)
[2021-05-06] MEDS: ACETAMINOPHEN 500 MG TABLET 1000 MG PO (13:06)
--- NOTE | 2021-05-06 14:24 | P.OP_ITS ---
Procedure Note - Detailed Date of Procedure 05/06/21 Pre-op Diagnosis desires sterlization Post-op Diagnosis same Procedure Performed laparoscopic bilateral salpingectomy Surgeon Jose Bhatt MD Anesthesia general Indications desires permanent sterilization Findings normal appearing uterus, bilateral fallopian tubes and ovaries Description of Procedure the patient was taken to the operating room where general endotracheal anesthesia was undertaken and found to be adequate. She was then prepped and draped in the dorsal lithotomy position. A pre-operative team brief and time- out were completed. A catheter was placed to drain the bladder. Speculum was placed in the vagina and the cervix was identified. An acorn uterine manipulator was placed as well as single-tooth tenaculum on the anterior lip of the cervix. Attention was then turned to the abdomen which was anesthetized umbilical he with injected anesthetic. A 5 mm skin incision was made in the umbilicus. A 5 mm optical trocar was then placed with direct visualization of the abdominal layers during placement. The trocar stylette was removed and the camera was used to verify intra-abdominal placement.deric was used to verify intra-abdominal placement. CO2 insufflation was then connected and The abdominal cavity was insufflated. General abdominal and pelvic survey was performed. Two other laparoscopic port site incisions were made approximately 2 cm superior and medial of the ASIS bilaterally. Both fallopian tubes were inspected and identified out to the level of the fimbriae. The Fimbriated end of the left fallopian tube was then grasped with a blunt grasper. the fallopian tube was then transected along its inferior aspect along the mesosalpinx with the LigaSure device. Transection was carried out to the fallopian tubes insertion into the uterine fundus. The fallopian tube was then completely transected from the uterus using the LigaSure device. This procedure was repeated for the right fallopian tube. Good hemostasis was maintained throughout. The transected fgh the 5 mm laparoscopic portrom the abdomen through the 5 mm laparoscopic port. The surgical field was inspected and again could hemostasis was noted. At this point the procedure was ended. The abdomen was desufflated. All laparoscopic ports were removed from the abdomen. Abdominal incisions were closed with 4-0 Vicryl in a subcuticular fashion.. The acorn manipulator and tenaculum weere removed from the vagina. The cervix was inspected and good hemostasis was obtained. Sponge, lap and needle counts were correct. The patient tolerated the procedure well. The patient was taken out of dorsal lithotomy. anesthesia was reversed. The patient was taken to PACU in stable condition. Estimated Blood Loss 10 Urine Output 200 Drains No Packing No Pathology yes ( Bilateral fallopian tubes) Complications No immediate complications Condition stable Disposition PACU
[2021-05-06] MEDS: oxyCODONE HCL (*CRX) 5 MG TAB IR PO (15:46)
== END 2021-05-06 16:20 | disposition home or self-care (01) ==
PROVIDERS: Visit Provider Student in an Organized Health Care Education/Training Program
PROC: (CPT 49320; principal; 2021-05-06 14:30)
DX: Z30.2 Encounter for sterilization (principal); F17.210 Nicotine dependence, cigarettes, uncomplicated; F12.90 Cannabis use, unspecified, uncomplicated
CPT/HCPCS: 58661; 88302; A9270; J0330; J1100; J1885; J2250; J2405; J2704; J3010; J7030; J7120

== ENCOUNTER 2022-04-28 13:06 | Emergency (ER) | payer OTHER, SELFPAY ==
--- NOTE | ~2022-04-28 | XR_ITS ---
EXAMINATION: XR lumbar spine min 4V DATE: 04/28/2022 15:27 INDICATION: Low back pain TECHNIQUE: Anteroposterior, lateral, and bilateral oblique views of the lumbar spine, and cone-down l ateral view of the lumbosacral junction were obtained. COMPARISON: None. FINDINGS: No fracture, dislocation, or subluxation. The vertebral body heights are maintained. There is mild loss of intervertebral disc space height at L3-4. Small degenerative osteophytes project from the anterior endplates of multiple vertebral bodies. There is mild facet joint osteoarthritis in the lower lumbar spine. The radiopaque ring-shaped object in the pelvis likely reflects a contraceptive device. IMPRESSION: 1. Mild lumbar spondylosis without acute findings. Reviewed, dictated and finalized at location L. [facility] P[facility]ER
[2022-04-28 13:35] VITALS: BP 105/68; PULSE 73; RESP 16; TEMP 36.4; O2SAT 99
--- NOTE | 2022-04-28 14:58 | ED.BACK ---
HPI - Back Pain/Injury General Chief Complaint: Back Pain/Injury Stated Complaint: back pain Time Seen by Provider: 04/28/22 14:18 Source: patient Mode of arrival: ambulatory Limitations: no limitations History of Present Illness HPI Narrative: Patient is a 36-year-old female who presents with report of low back pain. Patient reports having pain in her mid lower back extending into her left lower back for the past 3 days, progressively worsening. 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 She denies any known injury or falls. She has not tried anything for the pain. Pain worse with movement. She denies any numbness, tingling, weakness, radiation of pain down legs, abdominal pain, incontinence, nausea, vomiting, fevers, dysuria, hematuria. Related Data Allergies Allergy/AdvReac Type Severity Reaction Status Date / Time aspirin Allergy Severe Anaphylaxis Verified 04/28/21 11:44 Penicillins Allergy Severe Anaphylaxis Verified 04/28/21 11:44 Review of Systems Review of Systems: CONSTITUTIONAL: Denies fever, chills, or sweats. CARDIOVASCULAR: Denies chest pain. RESPIRATORY: Denies dyspnea. GASTROINTESTINAL: Denies abdominal pain, nausea, vomiting. GENITOURINARY: Denies dysuria or hematuria. MUSCULOSKELETAL: See HPI. NEUROLOGIC: Denies tingling, headache, numbness, or weakness. All systems reviewed & are unremarkable except as noted in HPI and below PMFSH Past Medical History Medical History Patient denies significant medical history and not yet delivered Smoker Surgical History Surgical History (Updated 04/28/22 @ 19:36 by Betina Chen PA-C) No pertinent past surgical history Family History Family History Father Diabetes mellitus Congestive heart failure Seizure Sibling Cervical cancer Grandparent Congestive heart failure Sibling Seizure Other Sibling Social History Social History Smoking packs per day: 1 Smoking cigarettes per day: 20.0 Years smoked: 24 Smoking pack-years: 24.00 Smoking status: Current every day smoker Tobacco type: cigarettes Second hand tobacco smoke exposure: Yes Alcohol intake: current Alcohol use details: Occasional Substance use: current Substance use type: marijuana Last use: 02/24/21 Living arrangements: with family Gender identity (if verbalized by the patient): Female Sexual Orientation (if Verbalized by the Patient): Straight or Heterosexual Spiritual care concerns: No Exam Narrative: GENERAL: Well appearing, well-nourished, non-toxic, in no acute distress. HEAD: Normocephalic, atraumatic. NECK: Supple. No adenopathy, no masses. RESPIRATORY: Airway patent, respirations nonlabored. Clear to auscultation bilaterally, no rales, rhonchi, wheezing. CARDIOVASCULAR: Regular rate and rhythm without murmurs, rubs, or gallops. Pedal pulses 2+ and equal bilaterally. ABDOMINAL: Soft, nontender, nondistended, no hepatosplenomegaly. Normoactive BS. No significant CVA tenderness to percussion. MUSCULOSKELETAL: Moves all extremities. Strength/ROM intact without gross deformities. Mild tenderness throughout lower midline lumbar spine, left-sided paraspinal muscles. No palpable deformities or bony step-offs. Sensation intact. SKIN: Warm, dry, normal color. No rashes. NEURO: A&O X3. Speech clear. Cranial nerves II-XII grossly intact. No ataxic movements. PSYCHIATRIC: Appropriate mood and affect. Normal interaction. Course Vital Signs Vital signs: Vital Signs Temperature 97.6 F 04/28/22 13:35 Pulse Rate 73 04/28/22 13:35 Respiratory Rate 16 04/28/22 13:35 Blood Pressure 105/68 04/28/22 13:35 Pulse Oximetry 99 04/28/22 13:35 Temperature 97.6 F 04/28/22 13:35 Pulse Rate 88 04/28/22 17:06 Respiratory Rate 17 04/28/22 17:06 Blo
[2022-04-28] MEDS: KETOROLAC (*BKC) 60 MG/2 ML VIAL IM (14:59)
[2022-04-28 15:10] LABS: Appearance Urine Cloudy (Clear); Bilirubin Urine Negative (Negative); Blood Urine 3+ (Negative); Color Urine Yellow (Yellow); Glucose Urine UA Negative (Negative); Ketones Urine Negative (Negative); Leukocyte Esterase Ur Negative LEU/UL (Negative); Nitrate Urine Positive (Negative); Protein Urine Trace mg/dL (Negative); Specific Grav Ur 1.025 (1.001-1.035); Urobilinogen Urine 0.2 mg/dL (<2.0)
[2022-04-28 15:14] LABS: Bacteria Urine Trace /hpf; Mucus Urine Moderate /lpf; Squamous Epithelial Cell Urine Many /hpf (Few)
[2022-04-28 15:16] LABS: Add Urine Microscopic? YES
[2022-04-28 17:06] VITALS: BP 133/84; PULSE 88; RESP 17; O2SAT 97
== END 2022-04-28 17:08 | disposition home or self-care (01) ==
PROVIDERS: Emergency Provider Physician Assistant
DX: S39.012A Strain of muscle, fascia and tendon of lower back, initial encounter (principal); N30.01 Acute cystitis with hematuria; F17.210 Nicotine dependence, cigarettes, uncomplicated; M47.816 Spondylosis without myelopathy or radiculopathy, lumbar region; X50.0XXA Overexertion from strenuous movement or load, initial encounter
CPT/HCPCS: 72110; 81001; 87086; 87147; 87181; 87186; 96372; 99283; J1885

== ENCOUNTER 2024-07-29 10:29 | Emergency (ER) | payer OTHER, SELFPAY ==
--- OUTSIDE RECORDS SUMMARY | 2024-07-29 10:38 | XMS_ITS | Clinical Summary ---
Author Organization [facility] Address [address] [place] [id number] Care Team Providers Care Complex Director Name Role Phone Unavailable Primary Care Provider Unavailabl e Social History Tobacco Use Types Packs/Day Years Used Date Smoking Tobacco: Never Assessed Comments Unknown Sex and Gender Information Value Date Recorded Sex Assigned at Not on file Legal Sex Female 8:21 PM CDT Gender Identity Not on file Sexual Orientation Not on file Plan of Treatment Health Maintenance Due Date Last Done Comments Cervical Cancer Screening Pa p Smear (Age 30 to 64) Every 3 Years 1987 Annual Physical 10/10/1990 Hepatitis C 10/10/2005 DTaP, Tdap and Td Vaccines ( 1 - Tdap) 10/10/2006 Hepatitis B Vaccines (1 of 3 - 19+ 3-dose series) 10/10/2006 Cervical Cancer Screening Pa p with HPV Testing (Age 30 to 64) Every 5 Years 10/10/2017 Cervical Cancer Screening with HPV 10/10/2017 COVID-19 Vaccine (2023-2 5 season) 2023 HPV Vaccines Aged Out No longer eligi ble based on patient's age to complete this topic Meningococcal B Vaccine Aged Out No l onger eligible based on patient's age to complete this topic Meningococcal Vaccine Aged Out No tejal alber eligible based on patient's age to complete this topic Pneumococcal Vaccine: Pediat rics (0 to 5 Years) and At-Risk Patients (6 to 49 Years) Aged Out No longer eligible b ased on patient's age to complete this topic RSV Immunizations Under 20 Months Aged Out No longer eligible based on patient's age to complete this topic
[2024-07-29 10:48] VITALS: BP 117/72; PULSE 65; RESP 13; TEMP 36.6; O2SAT 100
--- OUTSIDE RECORDS SUMMARY | 2024-07-29 11:17 | XMS_ITS | Clinical Summary ---
Author Organization [facility] Address [address] [place] [id number] Care Team Providers Care Collection Analyst Name Role Phone Unavailable Primary Care Provider [...]
--- NOTE | 2024-07-29 11:34 | ED_ITS ---
HPI - Allergic Reaction General Chief complaint: Allergic Reaction Stated complaint: FACIAL SWELLING,EYE DRAINAGE Time Seen by Provider: 07/29/24 10:39 History of Present Illness HPI narrative: Patient is a 38 year old female who presents to the ER with complaints of bilateral eyelid swelling and draining eyes. She reports she noticed thick drainage in both of her eyes when she woke up this morning. Patient endorses a headache, photophobia and blurry vision. She denies any injury to her eyes. Patient endorses a history of seasonal allergies. She endorses a history of cervical cancer and is getting a hysterectomy at the end of the month. Patient denies any pain with eye movement, congestion or recent fevers. Related Data Allergies Allergy/AdvReac Type Severity Reaction Status Date / Time aspirin Allergy Severe Hives Verified 07/29/24 10:57 Penicillins Allergy Severe Anaphylaxis Verified 07/29/24 10:57 Review of Systems Review of Systems: All systems reviewed & are unremarkable except as noted in HPI and below PMFSH Past Medical History Medical History Smoker and not yet delivered Patient denies significant medical history Surgical History Surgical History No pertinent past surgical history Family History Family History Father Diabetes mellitus Congestive heart failure Seizure Sibling Cervical cancer Grandparent Congestive heart failure Sibling Seizure Other Sibling Social History Social History Smoking packs per day: 1 Smoking cigarettes per day: 20.0 Years smoked: 24 Smoking pack-years: 24.00 Smoking status: Current every day smoker Tobacco type: cigarettes Second hand tobacco smoke exposure: Yes Alcohol intake: current Alcohol use details: 1-2 TIMES/YEAR Substance use: current Substance use type: marijuana Last use: 02/24/21 Living arrangements: with family Gender identity (if verbalized by the patient): Female Sexual Orientation (if Verbalized by the Patient): Straight or Heterosexual Spiritual care concerns: No Exam Narrative: GENERAL: Well appearing, well-nourished, non-toxic, in no acute distress. HEAD: Normocephalic, atraumatic. Mild bilateral eyelid swelling, no visible thick discharge. PERRLA NECK: Supple. No adenopathy, no masses. RESPIRATORY: Airway patent, respirations nonlabored. Clear to auscultation bilaterally, no rales, rhonchi, wheezing. CARDIOVASCULAR: Regular rate and rhythm without murmurs, rubs, or gallops. Peripheral pulses 2+ and equal bilaterally. ABDOMINAL: Soft, nontender, nondistended, no hepatosplenomegaly. Normoactive BS. MUSCULOSKELETAL: Moves all extremities. Strength/ROM intact without gross deformities. SKIN: Warm, dry, normal color. No rashes. NEURO: A&O X3. Speech clear. Cranial nerves II-XII intact. No ataxic movements. PSYCHIATRIC: Appropriate mood and affect. Normal interaction. Course Vital Signs Vital signs: Vital Signs Temperature 36.6 C 07/29/24 10:48 Pulse Rate 65 07/29/24 10:48 Respiratory Rate 13 07/29/24 10:48 Blood Pressure 117/72 07/29/24 10:48 Pulse Oximetry 100 07/29/24 10:48 Oxygen Delivery Room Air 07/29/24 10:48 Temperature 36.6 C 07/29/24 10:48 Pulse Rate 67 07/29/24 11:38 Respiratory Rate 20 07/29/24 11:38 Blood Pressure 123/99 H 07/29/24 11:38 Pulse Oximetry 100 07/29/24 11:38 Oxygen Delivery Room Air 07/29/24 10:48 MDM - Allergic Reaction MDM Narrative Medical decision making narrative: Patient is a 38 year old female who presents to the ER with complaints of bilateral eyelid swelling and draining eyes. She reports she noticed thick drainage in both of her eyes when she woke up this morning. Patient endorses a headache, photophobia and blurry vision. She denies any injury to her eyes. Patient endorses a history of seasonal allergies. She endorses a history of cervical cancer and is getting a hysterectomy at the end of the month. Patient denies any pain with eye movement, congestion or recent fevers. Medications Ordered: Prednisone 40 mg p.o. Diagnosis: Allergic conjunctivitis, bacterial conjunctivitis Patient Education/Shared MDM: Results of examination shared with patient. She most likely has allergic conjunctivitis, but with reports of her thick eye drainage this morning she will be put on antibiotic eye drops. She endorses improvement of symptoms following medication administration. Patient strongly advised to follow-up with her PCP as soon as possible. She will be discharged home with a prescription for Ciprofloxacin eye gtts. Strict return precautions provided. Patient verbalized understanding and is in agreement with plan. Vital signs stable at time of discharge. All questions answered. Differential Diagnosis Differential diagnosis: Likely allergic reaction, contact dermatitis, urticaria and other (allergic conjunctivitis, bacterial conjunctivitis) Lab Data Attestation: I reviewed the patient's lab results. Discharge Plan Discharge Clinical Impression: Acute allergic conjunctivitis of both eyes, Acute bacterial conjunctivitis of both eyes Patient Disposition: Home Condition: Stable Instructions: Antibiotic Form Additional Instructions: Please return to the ER with any worsening symptoms. Follow-up with primary care provider as soon as possible. Take all medications as prescribed, including regularly scheduled medications. You may use Claritin or Zyrtec for ongoing allergy symptoms. Patient Language: Citizen Of [place] Prescriptions: New ciprofloxacin HCl 0.3 % drops See Rx Instructions .ROUTE .COMPLEX Qty: 5 0RF Rx Instructions: put 1-2 drps in affected eye(s) every 2hr up to 8 times/day x2days; then 4 times/day x5days No Action naproxen 500 mg tablet 500 mg PO BID PRN (Reason: pain) Qty: 20 0RF cyclobenzaprine 5 mg tablet 5 mg PO TID PRN (Reason: muscle spasm) Qty: 15 0RF ciprofloxacin HCl 500 mg tablet 500 mg PO Q12H 7 Days Qty: 14 0RF Follow-up/Referrals: UNKNOWN,DOCTOR [Primary Care Provider] - Stand Alone Forms: Work/School Release IP Time of Disposition: 12:49
[2024-07-29] MEDS: predniSONE 20 MG TABLET 40 MG PO (11:37)
[2024-07-29 11:38] VITALS: BP 123/99; PULSE 67; RESP 20; O2SAT 100
[2024-07-29 13:27] VITALS: BP 103/75; PULSE 62; RESP 16; O2SAT 97
== END 2024-07-29 13:29 | disposition home or self-care (01) ==
PROVIDERS: Emergency Provider Registered Nurse
DX: H10.9 Unspecified conjunctivitis (principal); F17.210 Nicotine dependence, cigarettes, uncomplicated
CPT/HCPCS: 99283; J7512

== ENCOUNTER 2024-08-05 14:27 | Outpatient (CLI) | payer OTHER, SELFPAY ==
--- NOTE | 2024-08-05 13:30 | ECG_ITS ---
Test Date: 2024-08-05 14:56:54 Measurements Intervals [place] Rate: 60 P: 55 VT: 185 QRS: 74 QRSD: 93 T: 43 QT: 392 QTc: 394 Interpretive Statements SINUS RHYTHM NONSPECIFIC T WAVE ABNORMALITY No previous ECG available for comparison Electronically Signed On 08-06-2024 13:23:49 CDT by Derek Juan M.D.
--- OUTSIDE RECORDS SUMMARY | 2024-08-05 14:33 | XMS_ITS | Clinical Summary ---
Author Organization [facility] Address [address] [place] [address] Care Team Providers Care Clinical Nursing Instructor Name Role Phone Unavailable Primary Care Provider [...]
[2024-08-05 15:07] LABS: Hematocrit 38.9 % (37.0-47.0); Hemoglobin 12.5 g/dL (12.0-15.0)
== END 2024-08-05 14:28 | disposition home or self-care (01) ==
LOC: ANHSURGERY 14:32
PROVIDERS: Anesthesiology; PCP Physician Assistant; Visit Provider Obstetrics & Gynecology
DX: F17.210 Nicotine dependence, cigarettes, uncomplicated (principal); D64.9 Anemia, unspecified; N94.6 Dysmenorrhea, unspecified
CPT/HCPCS: 36415; 85014; 85018; 86850; 86900; 86901; 93005

== ENCOUNTER 2024-08-14 01:17 | Day surgery (SDC) | payer OTHER, SELFPAY ==
[2024-08-05 08:34] VITALS: BMI 27.4
--- NOTE | 2024-08-05 08:47 | PC.NURSE ---
Report to the Outpatient Waiting Room, entrance under the green pavilion located off [facility], at time _1045_ on date _[id number]_. Planned Procedure Time: _1245_.? Time changes happen often and if your time is changed the preop area will call you the afternoon before. - You and your visitor will be asked to self-screen and do not enter if you have any COVID symptoms. Please call surgeon if you need to reschedule. - A mask is optional within the hospital at this time. Patients may have clear liquids (water, carbonated beverages, clear teas, apple juice) until 3 hours prior to surgery with a maximum of 20 ounces. - No food from midnight until time of surgery and no smoking, or chewing tobacco (or any form of nicotine). No chewing gum, candy or mints. Take only the following medications with a SIP of water on the morning of surgery: ___None DO NOT STOP ANY OF YOUR OTHER PRESCRIPTION MEDICATIONS PRIOR TO SURGERY EXCEPT THE FOLLOWING Hold all vitamins and supplements for 3 days per anesthesiologist. Medications to discontinue per physician Please check with Dr Brown if OK to take Ibuprofen. Acetaminophen is OK to take. Date to take last dose Please no make-up, nail cypriot, hairspray, perfume, deodorant, or body powder the day of surgery.? No jewelry (including any body piercings) or valuables the day of surgery, leave them at home.? Please take a shower or bath the night before, or the morning of, surgery with an antibacterial soap.? Wear comfortable, loose fitting clothing.? - Jewelry must be removed prior to entering the operating room.? Rings and piercings that are not removed may be cut off. - The hospital will not accept responsibility for valuables.? - Please leave all valuables, including medications, at home the day of surgery. If you are going home after surgery, a licensed electric train driver must drive you home.? - NO public transportation without another adult if you receive anesthesia. - We recommend that an adult stay with you for 24 hours following discharge. - We also recommend that you do not drive, make important decision, drink alcoholic beverages, or take any drugs that were not prescribed by your health care provider for at least 24 hours after your discharge time. Follow any additional instructions given to you from your surgeon. Telephone instructions given to __Catherine___and asked if any additional questions and then verbalized understanding. Patient advised to call surgeon office or pre surgery nurse liaison [phone] if any additional questions.
[2024-08-14] VITALS (8 sets, daily range): BP systolic 94–125; BP diastolic 65–88; PULSE 52–94; RESP 12–19; TEMP 36.2–37.1; O2SAT 95–100; BMI 27.0
[2024-08-14] MEDS: LACTATED RINGERS 1,000 ML 30 ML IV CONT ×2 (11:10→14:39)
[2024-08-14] MEDS: ACETAMINOPHEN 500 MG TABLET 1000 MG PO ×3 (11:21→23:05)
[2024-08-14] MEDS: KETOROLAC 15 MG/ML VIAL (*BKC) IV PUSH (11:23)
[2024-08-14 12:30] LABS: BEDSIDEPREGUCG Negative (Negative)
--- NOTE | 2024-08-14 12:30 | SUR.PREOP ---
1230- Notified patient and mother Radha procedure start time will be delayed. Patient verbalized understanding and denying needs at this time.
--- NOTE | 2024-08-14 12:33 | PM.IMHP ---
H&P: HPI History of Present Illness Date/Time: 08/14/24 12:33 Chief Complaint: Bleeding and pain Narrative: 38 y/o who has had bilateral salpingectomies, now here with heavy, prolonged, painful menses, deep dyspareunia, and a history of severe cervical dysplasia. She is interested in definitive surgical management with total vaginal hysterectomy. Review of Systems Review of Systems: All systems reviewed & are unremarkable except as noted in HPI and below PMFSH Past Medical History Medical History (Updated 08/14/24 @ 12:37 by Gerardo Brown MD) Dyspareunia Smoker and not yet delivered Patient denies significant medical history Surgical History Surgical History History of loop electrical excision procedure (LEEP) History of bilateral salpingectomy No pertinent past surgical history Family History Family History Father Diabetes mellitus Congestive heart failure Seizure Sibling Cervical cancer Grandparent Congestive heart failure Sibling Seizure Other Sibling Social History Social History Smoking packs per day: 1 Smoking cigarettes per day: 20.0 Years smoked: 20 Smoking pack-years: 20.00 Smoking status: Current every day smoker Tobacco type: cigarettes Second hand tobacco smoke exposure: Yes Alcohol intake: current Drinks per week: 20 Alcohol use details: 1-2 TIMES/YEAR Substance use: current Substance use type: marijuana Other substance usage details: Daily Last use: 02/24/21 Living arrangements: with family Gender identity (if verbalized by the patient): Female Sexual Orientation (if Verbalized by the Patient): Straight or Heterosexual Spiritual care concerns: No Meds Home Medications and Allergies Home Medications ?Medication ?Instructions ?Recorded ?Confirmed ?Type cyclobenzaprine 5 mg tablet 5 mg PO TID PRN muscle spasm #15 04/28/22 08/05/24 Rx tabs ibuprofen 800 mg tablet 800 mg PO Q8H PRN pain 08/05/24 08/14/24 History Allergies Allergy/AdvReac Type Severity Reaction Status Date / Time aspirin Allergy Severe Hives Verified 08/14/24 12:27 Penicillins Allergy Severe Anaphylaxis Verified 08/14/24 12:27 Vital Signs Vital Signs - 24 hr 08/14/24 10:35 Temperature 36.6 C Pulse Rate 72 Respiratory Rate 16 Blood Pressure 116/75 Pulse Oximetry 97 Oxygen Delivery Room Air Exam Const: Orientation/consciousness: patient oriented x3 Other: Well-developed, well-nourished female in no acute distress. Neck: Thyroid: thyroid normal Lymphatic: no lymphadenopathy noted (in neck, axilla or inguinal nodes) Resp: Effort & Inspection: normal respiratory effort Auscultation: clear to auscultation bilaterally Cardio: Rate: regular rate Rhythm: regular rhythm Heart sounds: S1 normal heart sound present and S2 normal heart sound present GI: Other: ABD: Soft, nontender, nondistended. No guarding or rebound tenderness. No hepatosplenomegaly. : General: Yes no CVA tenderness Other: External genitalia: normal female hair distribution, without lesion. Urethral meatus: no lesion, non prolapsed. Bladder: no mass, nontender Vagina: well-estrogenized, without lesion or discharge. No cystocele or rectocele. Cervix: no lesion or discharge. Uterus: small, anteverted, freely mobile, nontender Adnexa: no mass or tenderness. Anus/perineum: no lesions, nontender Back/Spine/Pelvis: Back: no CVA tenderness Skin: General skin exam: normal color and no rashes or lesions noted Neuro: General: patient oriented x3 Extrem: Other: Extremities: nontender with no edema Psych: Mental Status: mental status grossly normal Affect: normal affect Assessment and Plan Assessment and plan (1) Menometrorrhagia: Code(s): N92.1 - Excessive and frequent menstruation with irregular cycle Status: Acute Assessment and Plan: A: Menometrorrhagia with dysmenorrhea, dyspareunia, and history of severe cervical dysplasia. P: We reviewed medical as well as surgical treatment options. She prefers definitive surgical management with total vaginal hysterectomy. She understands risks of surgery to include risks of anesthesia, risks of pain, infection, bleeding, blood products, thromboembolic phenomena and damage to adjacent structures such as bowel, bladder, ureters, blood vessels and nerves. She understands that hysterectomy will render her permanently sterile. She understands all these risks and elects to proceed with surgery. (2) Dysmenorrhea: Code(s): N94.6 - Dysmenorrhea, unspecified Status: Acute
--- NOTE | 2024-08-14 13:15 | P.PNAN_ITS ---
Anes - Initial Pre Proc Eval Procedure: Operation Date: 08/14/24 12:45 Proposed Procedures p Total Vaginal Hysterectomy - Gerardo Brown MD Date/Time: 08/14/24 13:15 Surgeon: Gerardo Brown MD Pre Op Diagnosis: dysmenorrhea, dyspurenia Patient Data Age: 38 Gender: F Height: 1.66 m Weight: 74.8 kg Last Vital Signs Temp 36.6 C 08/14/24 10:35 Pulse 72 08/14/24 10:35 Resp 16 08/14/24 10:35 BP 116/75 08/14/24 10:35 Pulse Ox 97 08/14/24 10:35 O2 Del Method Room Air 08/14/24 10:35 Allergies Allergy/AdvReac Type Severity Reaction Status Date / Time aspirin Allergy Severe Hives Verified 08/14/24 12:27 Penicillins Allergy Severe Anaphylaxis Verified 08/14/24 12:27 Home Medications ?Medication ?Instructions ?Recorded ?Confirmed ?Type cyclobenzaprine 5 mg tablet 5 mg PO TID PRN muscle spasm #15 04/28/22 08/05/24 Rx tabs ibuprofen 800 mg tablet 800 mg PO Q8H PRN pain 08/05/24 08/14/24 History Laboratory Tests 08/14/24 10:50 POC Urine HCG, Qual Negative (Negative) Patient hx anesthesia problems: none Family hx anesthesia problems: none Results Review: All pre-operative results and documents have been reviewed as part of the pre- operative evaluation. FOR[facility]LY [facility], [facility] Past Medical History Medical History Dyspareunia Smoker and not yet delivered Patient denies significant medical history Surgical History Surgical History History of loop electrical excision procedure (LEEP) History of bilateral salpingectomy No pertinent past surgical history Family History Family History Father Diabetes mellitus Congestive heart failure Seizure Sibling Cervical cancer Grandparent Congestive heart failure Sibling Seizure Other Sibling Social History Social History Smoking packs per day: 1 Smoking cigarettes per day: 20.0 Years smoked: 20 Smoking pack-years: 20.00 Smoking status: Current every day smoker Tobacco type: cigarettes Second hand tobacco smoke exposure: Yes Alcohol intake: current Drinks per week: 20 Alcohol use details: 1-2 TIMES/YEAR Substance use: current Substance use type: marijuana Other substance usage details: Daily Last use: 02/24/21 Living arrangements: with family Gender identity (if verbalized by the patient): Female Sexual Orientation (if Verbalized by the Patient): Straight or Heterosexual Spiritual care concerns: No Anes - Eval Final PreProcedure Day of Procedure 08/14/24 13:15 Patient weight: overweight Heart: regular rate and rhythm Lungs: clear to auscultation Airway: Mallampati scale class II Neurological: alert and oriented Last oral intake: >/= 8 hours ASA classification: III Emergent: no Anesthetic plan: proceed Anesthesia type and monitoring: general ETT and standard monitoring Results Review: All pre-operative results and documents have been reviewed as part of the pre- operative evaluation. Informed Consent: The patient's anesthetic plan and its attendant risks and benefits were discussed with the patient/family/POA. Questions were solicited and answers provided to the satisfaction of the patient/family/POA.
--- NOTE | 2024-08-14 13:19 | WPDHPUPDATE1 ---
History and Physical Update Update Date/Time: 08/14/24 13:19 History and Physical has been reviewed, including an updated exam of the patient. There are NO changes in the patient's condition. Risks, benefits, and alternatives have been discussed and questions answered. Patient agrees to proceed with procedure.
[2024-08-14] MEDS: ceFAZolin 2 GM/D5W 50 ML 2 GM/50 ML BAG IVPB (13:36)
--- NOTE | 2024-08-14 14:13 | S_PTH ---
PATIENT: Catherine Gorman LOC: [facility] U#:[id number] AGE/SX: 38/F ROOM: RE08/14/[address]: Gerardo Brown MD : 1985 BED: DIS: 08/15/2024 SPEC #: [id number] RECD: 08/15/24 07:15 STATUS: KIMMIE REQ #: [id number] DENIS: 08/14/24 14:[address]: Gerardo Brown DEPT: [facility] Surgical RECD BY: Lesly Allan ENTERED: 08/15/24 07:16 SP TYPE: Surgical OTHR DR: Leon Cornell, PA Tissues: A - Uterus Procedures: Hematoxylin and Eosin Stain Gross and Microscopic Level 5
[2024-08-14] MEDS: fentaNYL CITRATE INJ (*CRX) 100 MCG/2 ML VIAL 25 MCG IV PUSH ×4 (14:46→15:01)
[2024-08-14] MEDS: ONDANSETRON INJ 4 MG/2 ML VIAL IV PUSH (14:53)
--- NOTE | 2024-08-14 14:53 | P.OP_ITS ---
Procedure Note - Detailed Date of Procedure 08/14/24 Pre-op Diagnosis Menometrorrhagia Dysmenorrhea Dyspareunia Post-op Diagnosis Same Procedure Performed Total vaginal hysterectomy Surgeon Gerardo Brown MD Anesthesia General Findings Normal-appearing uterus and ovaries. Bilateral Fallopian tubes surgically absent. Description of Procedure The patient was taken to the operating room where she was prepared and draped in the usual sterile fashion in the dorsal lithotomy position. The bladder was drained with red rubber catheter. A weighted speculum was placed posteriorly. A Khushi retractor was used anteriorly. The cervix was grasped with a single-to oth tenaculum. Ten mL of sterile saline was infiltrated circumferentially around the cervix to aid in tissue plane dissection. The cervix was circumscribed using electrocautery. The peritoneal cavity was entered sharply posteriorly and a long weighted speculum was placed. The uterosacral and cardinal ligaments on both sides were then clamped, transected and suture ligated using 0 Vicryl. These were tagged for later identification. The bladder was dissected off the cervix and lower uterine segment and reflected away. The LigaSure device was then used to clamp, ligate and transect the broad ligaments bilaterally. Finally, the utero-ovarian ligament, round ligament and tube complexes on both sides were able to be clamped, transected and suture ligated using 0 Vicryl. The specimen was passed off to be sent to pathology. The vaginal cuff angles were then transfixed to the ipsilateral cardinal uterosacral ligaments for support. The vaginal cuff was reapproximated using 0 Vicryl in a running, locked fashion. Hemostasis was excellent. A Membreno catheter was placed. Vaginal packing soaked in Premarin cream was placed. Sponge, lap, needle and instrument counts were correct. The patient was awakened and taken to the recovery room in stable condition. I was present and scrubbed for the entire procedure. Implants None Estimated Blood Loss 100 Drains Yes (Membreno) Packing Yes (Vaginal) Pathology Yes (Uterus and cervix) Complications None Condition Stable Disposition PACU
--- NOTE | 2024-08-14 14:58 | PM.DS ---
DS: Admitting Diagnosis Discharge Date 08/15/24 Admitting Diagnosis Menometrorrhagia Dysmenorrhea Dyspareunia DS: Discharge Diagnosis Discharge Diagnosis (1) Menometrorrhagia: Code(s): N92.1 - Excessive and frequent menstruation with irregular cycle Status: Acute (2) Dysmenorrhea: Code(s): N94.6 - Dysmenorrhea, unspecified Status: Acute (3) Dyspareunia: Status: Acute DS: Summary Hospital Course Hospital Course: She was admitted for total vaginal hysterectomy. Postoperatively her vaginal packing and wang catheter were removed. She voided. Pain was under good control. She tolerated a regular diet. She was able to go home on POD1. Time Spent with Patient Time attestation: Total time spent providing and/or coordinating discharge services: DS: Data Data Completed and Pending Pending studies at discharge: Pending at discharge 08/14/24 14:13 Surgical [PTH] Routine Labs on day of discharge: Labs from last 24 hours 08/14/24 10:50 POC Urine HCG, Qual Negative Discharge Plan Discharge Patient Disposition: Home Discharge Instructions: Nothing in the vagina for 6 weeks.. Call or return if temperature above 100.4? F, increased abdominal pain, increased vaginal bleeding or any new problems. Patient Language: Hebrew Stand Alone Forms: General Discharge Instructions Follow-up/Referrals: Gerardo Brown MD [Physician] - 2 Weeks Discharge Medications: New oxycodone-acetaminophen [Percocet] 5-325 mg tablet 1 - 2 tablet PO Q6H PRN (Reason: pain) Qty: 30 0RF Continued cyclobenzaprine 5 mg tablet 5 mg PO TID PRN (Reason: muscle spasm) Qty: 15 0RF ibuprofen 800 mg tablet 800 mg PO Q8H PRN (Reason: pain)
--- NOTE | 2024-08-14 15:45 | OBPPTRN ---
Patient transferred to post room #281 via bed. Support person present. Oriented to unit, room, information board, admission packet and security measures. Patient verbalizes understanding. Pt has a history of seizures, seizure precautions taken by placing pad on bilateral side rails
[2024-08-14] MEDS: DEXTROSE 5%/0.45% SOD CHL 1,000 ML 125 ML IV CONT (16:05)
[2024-08-14] MEDS: oxyCODONE HCL (*CRX) 5 MG TAB IR 10 MG PO ×2 (16:07→22:19)
[2024-08-14] MEDS: KETOROLAC 30 MG/ML VIAL (*BKC) IV PUSH ×2 (17:01→23:05)
[2024-08-14] MEDS: DOCUSATE SODIUM 100 MG CAPSULE PO (17:02)
[2024-08-14] MEDS: SIMETHICONE 80 MG TAB.CHEW PO (17:02)
[2024-08-14] MEDS: NICOTINE (*PBKC) 21 MG PATCH 1 PATCH TRANSDERM (17:48)
[2024-08-14] MEDS: METOCLOPRAMIDE HCL INJ 10 MG/2 ML VIAL IV PUSH (17:49)
[2024-08-14] MEDS: ENOXAPARIN 40 MG/0.4 ML SYRINGE SUB-Q (21:00)
[2024-08-15] MEDS: oxyCODONE HCL (*CRX) 5 MG TAB IR 10 MG PO (04:49)
[2024-08-15] MEDS: ACETAMINOPHEN 500 MG TABLET 1000 MG PO ×2 (04:49→10:23)
[2024-08-15] MEDS: KETOROLAC 30 MG/ML VIAL (*BKC) IV PUSH (04:49)
[2024-08-15 05:00] VITALS: BP 121/78; PULSE 70; RESP 16; TEMP 36.3; O2SAT 99
[2024-08-15 05:20] LABS: Basophils Absolute Auto 0.1 K/mm3 (0.0-0.1); Basophils Percent Auto 0.4 % (0.2-1.2); Hematocrit 40.8 % (37.0-47.0); Hemoglobin 13.6 g/dL (12.0-15.0); Immature Granulocyte Absolute 0.05 K/mm3 (0.00-0.031); Immature Granulocyte Percent A 0.4 % (0-0.5); Lymphocytes Percent Auto 12.9 % (18.3-44.2); Mean Corpuscular HGB Conc 33.3 g/dl (32-36); Mean Platelet Volume 10.2 fl (7.4-10.4); Monocytes Absolute Auto 0.9 K/mm3 (0.1-0.6); Monocytes Percent Auto 7.4 % (2.6-8.5); Neutrophils Absolute Auto 9.8 K/mm3 (1.3-6.7); Neutrophils Percent Auto 78.9 % (45.5-73.1); Platelet Count Result 211 k/mm3 (150-375); Red Blood Count 4.25 M/mm3 (4.2-5.4); Red Cell Distribution Width 12.2 % (11.5-14.5); White Blood Count 12.4 K/mm3 (4.5-10.0)
[2024-08-15 08:10] VITALS: BP 100/58; PULSE 73; RESP 16; TEMP 37.2; O2SAT 98
[2024-08-15] MEDS: DOCUSATE SODIUM 100 MG CAPSULE PO (09:43)
[2024-08-15] MEDS: SIMETHICONE 80 MG TAB.CHEW PO ×2 (09:43→11:29)
[2024-08-15] MEDS: IBUPROFEN 600 MG TABLET PO (10:24)
[2024-08-15] MEDS: oxyCODONE HCL (*CRX) 5 MG TAB IR PO (11:30)
[2024-08-15 12:21] VITALS: BP 101/65; PULSE 68; RESP 18; TEMP 37.4; O2SAT 98
--- NOTE | 2024-08-15 12:48 | P.PNOB_ITS ---
MARKETING PROGRAMS MANAGER - A/P Assessment and plan (1) Menometrorrhagia: Code(s): N92.1 - Excessive and frequent menstruation with irregular cycle Status: Acute Assessment and Plan: A: POD#1, s/p TVH. Doing well. P: Home to f/u 2 weeks. (2) Dysmenorrhea: Code(s): N94.6 - Dysmenorrhea, unspecified Status: Acute (3) Dyspareunia: Status: Acute Postoperative Procedures: Procedures Operation Date: 08/14/24 12:45 Actual Procedure Side Surgeon p Total Vaginal Hysterectomy Not Applicable Gerardo Brown MD Postoperative day: 1 Time Spent With Patient Time: Total time spent is greater than 50% in coordination of care (as documented) at patient's floor/unit and/or counseling patient: Time with patient: less than 15 minutes MARKETING PROGRAMS MANAGER- PN:Subj Post-Op Subjective Date/time seen: 08/15/24 12:48 Interval history: Pain OK. Tolerating diet. Voiding. Would like to go home. Exam 2 Narrative: AVSS I/O OK ABD soft, nontender. Incisions c/d/i. EXT nontender MARKETING PROGRAMS MANAGER - PN: Obj Data Vital Signs Vital Signs: Vital Signs - 24 hr 08/14/24 14:39 08/14/24 14:50 08/14/24 15:05 Temperature 37.1 C Pulse Rate 94 68 60 Respiratory Rate 19 12 12 Blood Pressure 114/74 118/79 113/80 Pulse Oximetry 96 95 97 Oxygen Delivery Room Air Room Air Nasal Cannula Oxygen Flow Rate 2 08/14/24 15:20 08/14/24 15:34 08/14/24 15:45 Temperature 36.2 C L 36.6 C Pulse Rate 61 61 52 L Respiratory Rate 14 14 14 Blood Pressure 120/88 125/82 94/65 L Pulse Oximetry 98 98 100 Oxygen Delivery Nasal Cannula Nasal Cannula Oxygen Flow Rate 2 2 08/14/24 15:45 08/14/24 19:35 08/14/24 19:35 Temperature 36.2 C L Pulse Rate 52 L 56 L Respiratory Rate 14 18 Blood Pressure 105/67 Pulse Oximetry 100 100 Oxygen Delivery Nasal Cannula Room Air Oxygen Flow Rate 2 08/15/24 05:00 08/15/24 08:10 08/15/24 12:21 Temperature 36.3 C L 37.2 C 37.4 C Pulse Rate 70 73 68 Respiratory Rate 16 16 18 Blood Pressure 121/78 100/58 L 101/65 Pulse Oximetry 99 98 98 Oxygen Delivery Oxygen Flow Rate Intake/Output Intake/Output: Intake & Output 08/12/24 08/13/24 08/14/24 08/15/24 23:59 23:59 23:59 23:59 Intake Total 340 2350 Output Total 1125 1050 Balance -785 1300 Meds/Results Medications: Active Medications Generic Name Dose Route Start Last Admin Trade Name Freq PRN Reason Stop Dose Admin Acetaminophen 1,000 mg 08/14/24 18:00 08/15/24 10:23 Acetaminophen 500 Mg Tablet PO 1,000 mg Q6HR NATALIA Administration Docusate Sodium 100 mg 08/14/24 17:00 08/15/24 09:43 Docusate Sodium 100 Mg Capsule PO 100 mg BID NATALIA Administration Enoxaparin Sodium 40 mg 08/14/24 21:00 08/14/24 21:00 Enoxaparin 40 Mg/0.4 Ml Syringe SUB-Q 40 mg Q24H NATALIA Administration Ibuprofen 600 mg 08/15/24 12:00 08/15/24 10:24 Ibuprofen 600 Mg Tablet PO 600 mg Q6HR NATALIA Administration Metoclopramide HCl 10 mg 08/14/24 17:34 08/14/24 17:49 Metoclopramide Hcl Inj 10 Mg/2 Ml Vial IV PUSH 10 mg Q6H PRN Administration nausea Naloxone HCl 0.1 mg 08/14/24 15:35 Naloxone Hcl 0.4 Mg/Ml Vial IV PUSH Q2M PRN Respiratory rate less than 10 Nicotine 1 patch 08/14/24 19:00 08/14/24 17:48 Nicotine (*Pbkc) 21 Mg Patch TRANSDERM 1 patch Q24H NATALIA Administration Ondansetron HCl 4 mg 08/14/24 15:35 Ondansetron Inj 4 Mg/2 Ml Vial IV PUSH Q6H PRN Nausea And Vomiting Oxycodone HCl 5 mg 08/14/24 15:35 08/15/24 11:30 Oxycodone Hcl (*Crx) 5 Mg Tab Ir PO 5 mg Q4H PRN Administration Pain Rated 4-6 Oxycodone HCl 10 mg 08/14/24 15:35 08/15/24 04:49 Oxycodone Hcl (*Crx) 5 Mg Tab Ir PO 10 mg Q6H PRN Administration Pain Rated 7-10 Simethicone 80 mg 08/14/24 17:00 08/15/24 11:29 Simethicone 80 Mg Tab.Chew PO 80 mg TIDWM NATALIA Administration Labs 08/15/24 05:07 Labs: Laboratory Results - last 24 hr 08/15/24 05:07 WBC 12.4 H RBC 4.25 Hgb 13.6 Hct 40.8 MCV 96.0 MCH 32.0 MCHC 33.3 RDW 12.2 Plt Count 211 MPV 10.2 Immature Gran % (Auto) 0.4 Neut % (Auto) 78.9 H Lymph % (Auto) 12.9 L Sargent % (Auto) 7.4 Eos % (Auto) 0.0 Baso % (Auto) 0.4 Lymph # (Auto) 1.60 Sargent # (Auto) 0.9 H Eos # (Auto) 0.0 Baso # (Auto) 0.1 Abs Immat Gran (auto) 0.05 H Absolute Neuts (auto) 9.8 H Absolute Nucleated RBC 0.000 Nucleated RBC % 0.0
== END 2024-08-15 13:25 | disposition home or self-care (01) ==
LOC: ANHSURGERY 15:00 → ANHOB2 15:54
PROVIDERS: PCP Physician Assistant; Visit Provider Obstetrics & Gynecology
PROC: (CPT 58260; principal; 2024-08-14 12:45)
DX: N72 Inflammatory disease of cervix uteri (principal); G89.18 Other acute postprocedural pain; F17.210 Nicotine dependence, cigarettes, uncomplicated; F12.90 Cannabis use, unspecified, uncomplicated; Z79.1 Long term (current) use of non-steroidal anti-inflammatories (NSAID); Z98.890 Other specified postprocedural states; Z80.49 Family history of malignant neoplasm of other genital organs; Z82.49 Family history of ischemic heart disease and other diseases of the circulatory system
CPT/HCPCS: 58260; 36415; 85025; 88307; 99199; A9270; J0690; J1100; J1171; J1650; J1885; J2250; J2405; J2704; J2765; J3010; J7030; J7120